=== PATIENT | female | born 1980 | race Caucasian/White ===

== ENCOUNTER 2017-05-21 10:57 | Emergency (ER) | payer OTHER, MEDICAID ==
[2017-05-21 12:35] VITALS: BP 111/76
[2017-05-21] MEDS ORDERED: Albuterol HFA INHALER* 8 gm MDI INH ONE (12:44)
--- NOTE | 2017-05-21 12:46 | UC ---
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 ?: No Onset/Duration: Gradual Onset, Lasting Weeks - 8, Still Present Severity Initially: Mild Severity Currently: Mild Character: Cough: Nonproductive Aggravating Factors: Nothing Alleviating Factors: Nothing Associated Signs And Symptoms: Positive: Negative <Evelyn Medina - Last Filed: 05/21/17 18:39> <Aminata Gaviria - Last Filed: 05/21/17 20:18> - History of Current Complaint Chief Complaint: UCRespiratory Stated Complaint: COUGH Time Seen by Provider: 05/21/17 12:25 - Allergies/Home Medications Allergies/Adverse Reactions: Allergies Allergy/AdvReac Type Severity Reaction Status Date / Time insecticides Allergy See Comment Uncoded 05/21/17 12:36 Home Medications: Home Medications Baclofen TAB* [Lioresal TAB*] 40 mg PO TID 05/21/17 [History Confirmed 05/21/17 ] guaiFENesin LIQ* [Robitussin*] 5 mg PO Q8H PRN 05/21/17 [History Confirmed 05/21] PMH/Surg Hx/FS Hx/Imm Hx Previously Healthy: No - Cerebral Palsey - Surgical History Surgical History: Yes Surgery Procedure, Year, and Place: subcutaneous groin spasticity release - Family History Known Family History: Positive: None Family History: No cardio vascular issues reported in family lineage - Social History Occupation: Disabled Lives: With Family Alcohol Use: None Substance Use Type: None Smoking Status (MU): Never Smoked Tobacco <Evelyn Medina - Last Filed: 05/21/17 18:39> Review of Systems Constitutional: Negative Skin: Negative Eyes: Negative ENT: Negative Respiratory: Cough Cardiovascular: Negative Gastrointestinal: Negative Genitourinary: Negative Motor: Negative Neurovascular: Negative Musculoskeletal: Negative Neurological: Negative Psychological: Negative All Other Systems Reviewed And Are Negative: Yes <Evelyn Medina - Last Filed: 05/21/17 18:39> Physical Exam Triage Information Reviewed: Yes Appearance: Well-Appearing - chronic issues r/t CP, No Pain Distress, Well- Nourished Vital Signs: Initial Vital Signs Temp 98.8 F 05/21/17 12:27 Pulse 83 05/21/17 12:27 Resp 20 05/21/17 12:27 BP 111/76 05/21/17 12:27 Pulse Ox 100 05/21/17 12:27 Vital Signs Reviewed: Yes Eye Exam: Normal Eyes: Positive: Conjunctiva Clear ENT Exam: Normal ENT: Positive: Normal ENT inspection, Hearing grossly normal, Pharynx normal, TMs normal. Negative: Nasal congestion, Nasal drainage, Tonsillar swelling, Tonsillar exudate, Trismus, Muffled/hoarse voice Dental Exam: Other Dental: Positive: Other: - over bite, Plaque Neck exam: Normal Neck: Positive: Supple, Nontender, No Lymphadenopathy Respiratory Exam: Normal Respiratory: Positive: Chest non-tender, Lungs clear, Normal breath sounds, No respiratory distress, No accessory muscle use Cardiovascular Exam: Normal Cardiovascular: Positive: RRR, No Murmur, Pulses Normal, Brisk Capillary Refill Abdominal Exam: Normal Musculoskeletal Exam: Normal Musculoskeletal: Positive: Strength Intact, ROM Intact, No Edema Neurological Exam: Normal Neurological: Positive: Alert, Muscle Tone Normal, Fatigued Psychological Exam: Normal Psychological: Positive: Normal Response To Family Skin Exam: Normal <Evelyn Medina - Last Filed: 05/21/17 18:39> Vital Signs: Initial Vital Signs Temp 37.1 C 05/21/17 12:27 Pulse 83 05/21/17 12:27 Resp 20 05/21/17 12:27 BP 111/76 05/21/17 12:27 Pulse Ox 100 05/21/17 12:27 <Aminata Gaviria - Last Filed: 05/21/17 20:18> UC Diagnostic Evaluation - Laboratory O2 Sat by Pulse Oximetry: 100 <Evelyn Medina - Last Filed: 05/21/17 18:39> Respiratory Course/Dx - Course Course Of Treatment: Zyrtec, Albuterol, increase fluids, follow with pcp - Differential Dx/Diagnosis Differential Diagnosis/HQI/PQRI: Asthma, Bronchitis, Influenza, Laryngitis, Lower Resp Infection, Sinusitis Provider Diagnoses: Allergic Rhinnitis <Evelyn Medina - Last Filed: 05/21/17 18:39> Discharge <Evelyn Medina - Last Filed: 05/21/17 18:39> <Aminata Gaviria - Last Filed: 05/21/17 20:18> - Discharge Plan Condition: Stable Disposition: HOME Prescriptions: Cetirizine HCl [Zyrtec Allergy 10 MG TAB] 10 mg PO DAILY #30 cap Patient Education Materials: Chronic Cough (ED), How to Use a Metered-Dose Inhaler and a Spacer (ED) Referrals: Connor Sosa [Primary Care Provider] - 1 Week
== END 2017-05-21 13:16 | disposition home or self-care (01) ==
LOC: UCCORT 10:57
DX: J30.9 Allergic rhinitis, unspecified (principal)
CPT/HCPCS: 99203; A9270-GY; G0463

== ENCOUNTER 2018-04-03 16:13 | Emergency (ER) | payer OTHER, MEDICAID ==
[2018-04-03 17:46] VITALS: BP 98/57
--- NOTE | 2018-04-03 17:53 | UC ---
UC General HPI - HPI Summary HPI Summary: pt has hx Cerebral palsy mom gives hx or a sore throat and cough for about 12 days. pt is getting worse. no fever or hx of asthma but has used an inhaler for similar s/s's in past. 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 Negative: Chest Pain, Fever <Kathy Whittaker - Last Filed: 04/03/18 17:57> <Elma Man - Last Filed: 04/03/18 18:04> - History of Current Complaint Stated Complaint: COLD SX'S, SORE THROAT Time Seen by Provider: 04/03/18 17:43 - Allergy/Home Medications Allergies/Adverse Reactions: Allergies Allergy/AdvReac Type Severity Reaction Status Date / Time insecticides Allergy See Comment Uncoded 04/03/18 17:42 PMH/Surg Hx/FS Hx/Imm Hx - Additional Past Medical History Additional PMH: CP - Surgical History Surgical History: Yes Surgery Procedure, Year, and Place: subcutaneous groin spasticity release - Family History Known Family History: Positive: None Family History: No cardio vascular issues reported in family lineage - Social History Occupation: Disabled Lives: With Family Alcohol Use: None Substance Use Type: None Smoking Status (MU): Never Smoked Tobacco - Immunization History Vaccination Up to Date: Yes <Kathy Whittaker - Last Filed: 04/03/18 17:57> Review of Systems Constitutional: Negative Skin: Negative Eyes: Negative ENT: Sore Throat Respiratory: Cough, Other - congestion Cardiovascular: Negative Gastrointestinal: Negative Genitourinary: Negative Motor: Negative Neurovascular: Negative Musculoskeletal: Negative Neurological: Negative Psychological: Negative Is Patient Immunocompromised?: No All Other Systems Reviewed And Are Negative: Yes <Kathy Whittaker - Last Filed: 04/03/18 17:57> Physical Exam Triage Information Reviewed: Yes Appearance: Other: - habitus c/w cp but non toxic/ill Vital Signs: Initial Vital Signs Temp 99.1 F 04/03/18 17:38 Pulse 106 04/03/18 17:38 Resp 20 04/03/18 17:38 BP 98/57 04/03/18 17:38 Pulse Ox 98 05/14/18 17:38 Vital Signs Reviewed: Yes Eyes: Positive: Conjunctiva Clear ENT: Positive: Pharynx normal, TMs normal. Negative: Nasal congestion, Nasal drainage Neck: Positive: Supple, Nontender, No Lymphadenopathy Respiratory: Positive: Lungs clear, Decreased breath sounds, Other: - cough is congested Cardiovascular: Positive: RRR, No Murmur Abdomen Description: Positive: Nontender, No Organomegaly, Soft Bowel Sounds: Positive: Present Neurological: Positive: Alert Psychological: Positive: Normal Response To Family Skin Exam: Normal <Kathy Whittaker - Last Filed: 04/03/18 17:57> Vital Signs: Initial Vital Signs Temp 99.1 F 04/03/18 17:38 Pulse 106 04/03/18 17:38 Resp 20 04/03/18 17:38 BP 98/57 04/03/18 17:38 Pulse Ox 98 04/03/18 17:38 <Elma Man - Last Filed: 04/03/18 18:04> Course/Dx - Course Course Of Treatment: non toxic, ill x 12 days with worsening thus will cover with augmentin for presumptive bacterial infection and albuterol mdi with spacer. - Differential Dx - Multi-Symptom Provider Diagnoses: cough, chest congestion, sore throat. <Kathy Whittaker - Last Filed: 04/03/18 17:57> Discharge - Sign-Out/Discharge Documenting (check all that apply): Discharge/Admit/Transfer - Billing Disposition and Condition Condition: STABLE Disposition: HOME <Kathy Whittaker - Last Filed: 04/03/18 17:57> - Billing Disposition and Condition Condition: STABLE Disposition: HOME <Elma Man - Last Filed: 04/03/18 18:04> - Discharge Plan Condition: Stable Disposition: HOME Prescriptions: Albuterol HFA INHALER* [Ventolin HFA Inhaler*] 2 puff INH Q6H #1 mdi Amoxicillin/Clavulanate TAB* [Augmentin TAB 875*] 875 mg PO BID #14 tab Patient Education Materials: Pharyngitis (ED), Acute Cough (ED) Referrals: Connor Sosa [Primary Care Provider] - 5 Days Attestation Statement User Type: Provider - I was available for consult. This patient was seen by the JAYNA. The patient was not presented to, seen by, or examined by me. -Tony <Elma Man - Last Filed: 04/03/18 18:04>
== END 2018-04-03 18:02 | disposition home or self-care (01) ==
LOC: UCCORT 16:13
DX: R05 Cough (principal); R09.89 Other specified symptoms and signs involving the circulatory and respiratory systems; J02.9 Acute pharyngitis, unspecified; G80.9 Cerebral palsy, unspecified
CPT/HCPCS: 99212; G0463

== ENCOUNTER 2019-08-25 09:03 | Emergency (ER) | payer OTHER, MEDICAID ==
[2019-08-25 10:29] VITALS: BP 108/80
--- NOTE | 2019-08-25 10:41 | UC ---
Respiratory Complaint HPI - HPI Summary HPI Summary: 39 year old female with CP, spastic, presents with mother for coughing, non- procutive, hacking, causing patient to throw up on numberous occassions. no fever, c/o abdominal pain after vomiting, but none otherwise. no changes to bowel/ urine. Decreased eating, but drinking well. no c/o ear, throat pain, no sinus pressure. was seen at [facility] 1 week ago, given tessalon, zyrtec , robutussin- no improvement. did c/o SOB one episode. - History of Current Complaint Chief Complaint: UCRespiratory Stated Complaint: COUGH Time Seen by Provider: 08/25/19 10:34 Hx Obtained From: Patient Hx Last Menstrual Period: 03/28/18 ?: No Onset/Duration: Gradual Onset, Lasting Weeks Timing: Constant Pain Intensity: 0 Pain Scale Used: 0-10 Numeric Character: Cough: Nonproductive Aggravating Factors: Recumbent Position Alleviating Factors: Upright Position Associated Signs And Symptoms: Positive: Dyspnea, URI. Negative: Fever, Chills , Pleuritic Chest Pain, Wheezing, Hemoptysis, Dizziness, Calf Pain, Calf Swelling - Allergies/Home Medications Allergies/Adverse Reactions: Allergies Allergy/AdvReac Type Severity Reaction Status Date / Time insecticides Allergy See Comment Uncoded 08/25/19 10:23 PMH/Surg Hx/FS Hx/Imm Hx Previously Healthy: No - CP - Surgical History Surgical History: Yes Surgery Procedure, Year, and Place: subcutaneous groin spasticity release - Family History Known Family History: Positive: None, Non-Contributory Family History: No cardio vascular issues reported in family lineage - Social History Alcohol Use: None Substance Use Type: None Smoking Status (MU): Never Smoked Tobacco - Immunization History Vaccination Up to Date: Yes Review of Systems All Other Systems Reviewed And Are Negative: Yes Constitutional: Negative: Fever, Chills, Fatigue Respiratory: Positive: Shortness Of Breath, Cough Musculoskeletal: Positive: Arthralgia Neurological: Positive: Negative Is Patient Immunocompromised?: No Physical Exam Triage Information Reviewed: Yes Appearance: Well-Appearing, No Pain Distress, Well-Nourished Vital Signs: Initial Vital Signs Temp 99.1 F 08/25/19 10:24 Pulse 91 08/25/19 10:24 Resp 24 08/25/19 10:24 BP 108/80 08/25/19 10:24 Pulse Ox 100 08/25/19 10:24 Vital Signs Reviewed: Yes Eyes: Positive: Conjunctiva Clear ENT: Positive: Pharynx normal, TMs normal, Uvula midline. Negative: TM bulging , TM dull, TM red, Tonsillar swelling, Tonsillar exudate, Sinus tenderness Neck: Positive: Supple, Nontender, No Lymphadenopathy. Negative: Enlarged Nodes @ Respiratory: Positive: Chest non-tender, Lungs clear, No respiratory distress, No accessory muscle use, Decreased breath sounds - b/l LE's. Negative: Respiratory distress Cardiovascular: Positive: RRR, No Murmur Abdomen Description: Positive: Nontender. Negative: Distended, Guarding Musculoskeletal Exam: Normal Psychological Exam: Normal Psychological: Positive: Normal Response To Family Respiratory Course/Dx - Course Course Of Treatment: URI: - COntinue RObutussin as needed for cough - Continue Zyrtec for decreased inflammation, congestion - ANtibiotic as directed base on duration of symptoms, CP - ALbuterol inhaler with spacer for cough, SOB as needed - Increase fluid intake to help loosen secretions, flush system. - Tylenol/ Motrin as needed for pain, symptoms. - follow up with primary if no improvement within 3-5 days - GO to ER with worsening symptoms, increased shortness of breath, fever/ chills. - Differential Dx/Diagnosis Differential Diagnosis/HQI/PQRI: Laryngitis, Lower Resp Infection Provider Diagnosis: URI (upper respiratory infection) Discharge ED - Sign-Out/Discharge Documenting (check all that apply): Patient Departure All imaging exams completed and their final reports reviewed: No Studies - Discharge Plan Condition: Good Disposition: HOME Prescriptions: Albuterol HFA INHALER* [Ventolin HFA Inhaler*] 1 - 2 puff INH Q4H PRN #1 mdi PRN Reason: cough, SOB Azithromyxin REBECCA (NF) [Z-Rebecca (Zithromax) 250 mg tabs #6] 2 tab PO .TODAY, THEN 1 DAILY #6 tab Inhaler, Assist Devices [Space Chamber Plus] 1 units INH Q4H PRN #1 spacer PRN Reason: SOB, Cough Patient Education Materials: Albuterol (By breathing), Upper Respiratory Infection (ED) Referrals: Connor Sosa [Primary Care Provider] - Additional Instructions: - COntinue RObutussin as needed for cough - Continue Zyrtec for decreased inflammation, congestion - ANtibiotic as directed base on duration of symptoms, CP - ALbuterol inhaler with spacer for cough, SOB as needed - Increase fluid intake to help loosen secretions, flush system. - Tylenol/ Motrin as needed for pain, symptoms. - follow up with primary if no improvement within 3-5 days - GO to ER with worsening symptoms, increased shortness of breath, fever/ chills. - Billing Disposition and Condition Condition: GOOD Disposition: Home
== END 2019-08-25 12:00 | disposition home or self-care (01) ==
LOC: UCCORT 09:03
DX: R05 Cough (principal); R07.9 Chest pain, unspecified; R10.9 Unspecified abdominal pain; M25.50 Pain in unspecified joint; R06.02 Shortness of breath; R11.10 Vomiting, unspecified; Z77.098 Contact with and (suspected) exposure to other hazardous, chiefly nonmedicinal, chemicals
CPT/HCPCS: 71045; 99212; G0463